=== PATIENT | female | born 1980 | race African-American/Black ===

== ENCOUNTER 2023-11-21 09:54 | Emergency (ER) | payer OTHER ==
[2023-11-21 11:52] VITALS: BP 116/73; PULSE 86; RESP 20; TEMP 98.3; BMI 49.9
== END 2023-11-21 12:35 | disposition home or self-care (01) ==
LOC: FER 09:54
DX: S40.012A Contusion of left shoulder, initial encounter (principal); Y04.0XXA Assault by unarmed brawl or fight, initial encounter
CPT/HCPCS: 73030-TC-LT-FY; 99283-25